=== PATIENT | male | born 1995 | race Caucasian/White ===

== ENCOUNTER 2016-11-01 04:45 | Emergency (ER) | payer OTHER ==
[~2016-11-01] VITALS: Ht 177.8 cm; Wt 63.6 kg
[2016-11-01] MEDS ORDERED: PERC5TAB12 PO (05:05)
[2016-11-01] MEDS ORDERED: IBUP1TAB7 PO (05:05)
[2016-11-01] MEDS ORDERED: NS 1,000 ML IV ONE (05:30)
[2016-11-01] MEDS ORDERED: KETOROLAC 30 MG/ML VIAL (J1885) IV ONE (05:30)
[2016-11-01 05:43] LABS: BASO % 0.4 % (0.0-1.0); EOS # 0.2 K/mm3 (0.0-0.50); EOS % 1.3 % (0.0-3.0); LARGE UNSTAINED CELL # 0.2 K/mm3 (0.0-0.4); LARGE UNSTAINED CELL % 1.5 % (0.0-4.0); LYMPH # 3.5 K/mm3 (1.5-6.5); LYMPH % 30.7 % (24.0-44.0); MEAN CORPUSCULAR HEMOGLOBIN 30.5 pg (27.0-33.0); MEAN CORPUSCULAR HGB CONC 35.6 g/dl (32.0-36.5); MEAN CORPUSCULAR VOLUME 85.7 fl (80.0-96.0); MONO # 0.4 K/mm3 (0.0-0.8); MONO % 3.5 % (0.0-5.0); NEUTROPHILS % 62.6 % (36.0-66.0); PLATELET COUNT, AUTOMATED 269 k/mm3 (150-450); WHITE BLOOD COUNT 11.3 K/mm3 (4.0-10.0)
[2016-11-01] MEDS ORDERED: GASTROGRAFIN SOLUTION 30ML PO ONE (05:45)
[2016-11-01 05:46] LABS: ALBUMIN 4.2 GM/DL (3.2-5.2); ALBUMIN/GLOBULIN RATIO 1.35 (1.00-1.93); ALKALINE PHOSPHATASE 69 U/L (45-117); ALT/SGPT 23 U/L (12-78); AMYLASE 41 U/L (25-115); ANION GAP 12 MEQ/L (8-16); AST/SGOT 28 U/L (15-37); BILIRUBIN,DIRECT 0.2 MG/DL (0.0-0.2); BILIRUBIN,TOTAL 0.6 MG/DL (0.2-1.0); BLOOD UREA NITROGEN 13 MG/DL (7-18); CALCIUM LEVEL 9.3 MG/DL (8.5-10.1); CARBON DIOXIDE LEVEL 27 MEQ/L (21-32); CHLORIDE LEVEL 99 MEQ/L (98-107); CREATININE FOR GFR 1.18 MG/DL (0.70-1.30); GLOMERULAR FILTRATION RATE > 60.0 (>60); GLUCOSE, FASTING 146 MG/DL (70-105); POTASSIUM SERUM 3.6 MEQ/L (3.5-5.1); SODIUM LEVEL 138 MEQ/L (136-145); TOTAL PROTEIN 7.3 GM/DL (6.4-8.2)
[2016-11-01] MEDS ORDERED: GASTROGRAFIN SOLUTION 30ML (Q9963) PO ONE (06:15)
[2016-11-01] MEDS ORDERED: ISOVUE-370 76% 100ML VIAL (Q9967) As Ordered ONE (07:37)
--- NOTE | 2016-11-01 08:13 | REP ---
Clinical: Acute abdominal pain. Technique: Axial contrast enhanced images from the lung bases to the pubic symphysis using oral and 100 ml Isovue 370 intravenous contrast material with coronal and sagittal re-formations. Findings: Lung bases are clear. Visualized heart and pericardium normal. Liver, spleen, pancreas, gallbladder, bilateral adrenal glands and kidneys are normal. The enteric system suggests moderate fecal stasis and possible constipation without obstruction or acute inflammatory process. Normal terminal ileum and appendix identified in the right lower quadrant. Pelvis demonstrates normal bladder and age appropriate prostate/seminal vesicles. No pelvic fluid or ascites. No free air. No adenopathy. No mass lesion. Vasculature appears normal. Musculoskeletal structures are intact. Impression: Possible moderate fecal stasis/constipation. Otherwise normal contrast enhanced CT of the abdomen and pelvis. No further acute abdominopelvic pathology appreciated. Signed by Tano Garcia MD 11/01/2016 08:05 A
[2016-11-01] MEDS ORDERED: CITR1SOL PO (08:29)
[2016-11-01 08:39] VITALS: BP 116/65
== END 2016-11-01 08:42 | disposition home or self-care (01) ==
LOC: M ED 04:45
DX: R10.9 Unspecified abdominal pain (principal); K59.00 Constipation, unspecified
CPT/HCPCS: 74177; 80048; 80076; 81001; 82150; 83690; 85025; 87086; 96374; 99283; J1885; Q9963; Q9967